=== PATIENT | male | born 1945 | race Hispanic/Latino ===

== ENCOUNTER 2018-02-18 12:15 | Outpatient (CLI) | payer BC ==
[2018-02-18 12:45] LABS: Hematocrit 40.3 % (35.5-45.6); Hemoglobin 13.6 gm/dl (11.8-15.2); Mean Corpuscular HGB Conc 34 % (32-34); Mean Corpuscular Hemoglobin 26 pg (28-32); Mean Corpuscular Volume 78 fl (84-94); Platelet Count 162 K/mm3 (140-440); Red Blood Count 5.14 M/mm3 (3.65-5.03); Red Cell Distribution Width 17.9 % (13.2-15.2)
[2018-02-18 12:56] LABS: Albumin 3.9 g/dL (3.9-5); Calcium 9.3 mg/dL (8.4-10.2)
[2018-02-18 13:09] LABS: Erythrocyte Sedimentation Rate 36 mm/Hr (0-20)
[2018-02-18 13:31] LABS: Free T4 (Free Thyroxine) 1.18 ng/dL (0.76-1.46)
== END 2018-02-18 12:16 | disposition home or self-care (01) ==
LOC: LAB 12:15
PROVIDERS: ATTEND Specialist
DX: G20 Parkinson's disease (principal); R79.89 Other specified abnormal findings of blood chemistry
CPT/HCPCS: 36415; 80053; 82607; 82747; 84439; 84443; 85027; 85652